=== PATIENT | male | born 1970 | race African-American/Black ===

== ENCOUNTER 2017-08-21 13:39 | Inpatient (IN) | payer OTHER ==
[2017-08-21 18:02] VITALS: BMI 23.6
--- NOTE | 2017-08-21 18:18 | HP ---
CIWA Score - CIWA Score Nausea/Vomitin-Mild Nausea/No Vomiting Muscle Tremors: 4-Moderate,w/Arms Extend Anxiety: 4-Mod. Anxious/Guarded Agitation: 4-Moderately Restless Paroxysmal Sweats: 1-Minimal Palms Moist Orientation: 0-Oriented Tacttile Disturbances: 0-None Auditory Disturbances: 0-None Visual Disturbances: 0-None Headache: 0-None Present CIWA-Ar Total Score: 14 Admission ROS [facility]HS - HPI Chief Complaint: WITHDRAWAL SX Allergies/Adverse Reactions: Allergies Allergy/AdvReac Type Severity Reaction Status Date / Time No Known Allergies Allergy Verified 08/25/14 16:23 History of Present Illness: 47 YEARS OLD MALE WITH LONG HISTORY OF ALCOHOL COCAINE NICOTINE DEPENDENCE DENIES MEDICAL ISSUE HAS DEPRESSION IS ADMITTED TO DETOX Exam Limitations: No Limitations - Ebola screening Have you traveled outside of the country in the last 21 days: No Have you had contact with anyone from an Ebola affected area: No Have you been sick,other than usual withdrawal symptoms: No Do you have a fever: No - Review of Systems Constitutional: Loss of Appetite, Changes in sleep, Unintentional Wgt. Loss, Unexplained wgt Loss EENT: reports: No Symptoms Reported Respiratory: reports: No Symptoms reported Cardiac: reports: No Symptoms Reported GI: reports: Nausea, Poor Appetite, Poor Fluid Intake, Abdominal cramping : reports: No Symptoms Reported Musculoskeletal: reports: No Symptoms Reported Integumentary: reports: No Symptoms Reported Endocrine: reports: No Symptoms Reported Hematology: reports: No Symptoms Reported Psychiatric: reports: Judgement Intact, Orientated x3, Depressed Other Systems: Reviewed and Negative Patient History - Patient Medical History Hx Anemia: No Hx Asthma: No Hx Chronic Obstructive Pulmonary Disease (COPD): No Hx Cancer: No Hx Cardiac Disorders: No Hx Congestive Heart Failure: No Hx Hypertension: No Hx Hypercholesterolemia: No Hx Pacemaker: No HX Cerebrovascular Accident: No Hx Seizures: No Hx Dementia: No Hx Diabetes: No Hx Gastrointestinal Disorders: Yes (ulcerative colitis not taking any meds at present) Hx Liver Disease: No Hx Genitourinary Disorders: No Hx Sexually Transmitted Disorders: No Hx Renal Disease (ESRD): No Hx Thyroid Disease: No Hx Human Immunodeficiency Virus (HIV): No Hx Hepatitis C: No Hx Depression: Yes Hx Suicide Attempt: No Hx Bipolar Disorder: No Hx Schizophrenia: No - Patient Surgical History Past Surgical History: No Hx Neurologic Surgery: No Hx Cataract Extraction: No Hx Cardiac Surgery: No Hx Lung Surgery: No Hx Breast Surgery: No Hx Breast Biopsy: No Hx Abdominal Surgery: No Hx Appendectomy: No Hx Cholecystectomy: No Hx Genitourinary Surgery: No Hx Orthopedic Surgery: No - PPD History Previous Implant?: Yes Documented Results: Negative w/proof Implanted On Prior [facility] Admission?: Yes Date: 08/27/14 PPD to be Administered?: Yes - Smoking Cessation Smoking history: Current every day smoker Have you smoked in the past 12 months: Yes Aproximately how many cigarettes per day: 5 Cigars Per Day: 0 Hx Chewing Tobacco Use: No Initiated information on smoking cessation: Yes 'Breaking Loose' booklet given: 08/21/17 - Substance & Tx. History Hx Alcohol Use: Yes Hx Substance Use: Yes Substance Use Type: Alcohol, Cocaine Hx Substance Use Treatment: Yes (2015 [facility]) - Substances Abused Alcohol Route: Oral Frequency: Daily Amount used: 2 PINT VOLKA Age of first use: 18 Date of Last Use: 08/20/17 Family Disease History - Family Disease History Family Disease History: Heart Disease: Mother (), Other: Mother Admission Physical Exam S - Vital Signs Vital Signs: Vital Signs - 24 hr 08/21/17 18:01 Temperature 98.3 F Pulse Rate 60 Respiratory 18 Rate Blood Pressure 110/77 - Physical General Appearance: Yes: Appropriately Dressed, Mild Distress, Thin, Tremorous, Irritable, Sweating, Anxious HEENTM: Yes: Hearing grossly Normal, Normal ENT Inspection, Normocephalic, Normal Voice Respiratory: Yes: Chest Non-Tender, Lungs Clear, Normal Breath Sounds, No Respiratory Distress, No Accessory Muscle Use Neck: Yes: Supple, Trachea in good position Breast: Yes: Breasts Symetrical Cardiology: Yes: Regular Rhythm, Regular Rate, S1, S2 Abdominal: Yes: Normal Bowel Sounds, Non Tender, Soft Genitourinary: Yes: Within Normal Limits Back: Yes: Normal Inspection Musculoskeletal: Yes: full range of Motion, Gait Steady Extremities: Yes: Normal Inspection, Normal Range of Motion, Non-Tender, Tremors Neurological: Yes: Fully Oriented, Alert, Motor Strength 5/5, Normal Response, Depressed Affect Integumentary: Yes: Warm Lymphatic: Yes: Within Normal Limits - Diagnostic (1) Alcohol dependence with uncomplicated withdrawal Current Visit: Yes Status: Acute (2) Cocaine dependence, uncomplicated Current Visit: Yes Status: Chronic (3) GERD (gastroesophageal reflux disease) Current Visit: Yes Status: Chronic Qualifiers: Esophagitis presence: without esophagitis Qualified Code(s): K21.9 - Gastro-esophageal reflux disease without esophagitis; K21.9 - Gastro- esophageal reflux disease without esophagitis; K21.9 - Gastro-esophageal reflux disease without esophagitis (4) Weight loss Current Visit: Yes Status: Acute (5) Depression (emotion) Current Visit: Yes Status: Suspected Qualifiers: Depression Type: dysthymia Qualified Code(s): F34.1 - Dysthymic disorder; F34.1 - Dysthymic disorder; F34.1 - Dysthymic disorder (6) Nicotine dependence Current Visit: Yes Status: Acute Qualifiers: Nicotine product type: cigarettes Substance use status: in withdrawal Qualified Code(s): F17.213 - Nicotine dependence, cigarettes, with withdrawal; F17.213 - Nicotine dependence, cigarettes, with withdrawal Cleared for Admission S - Detox or Rehab [facility] Level of Care: Medically Managed Detox Regimen/Protocol: Librium [facility] Breath Alcohol Content Breath Alcohol Content: 0 Urine Drug Screen - Results Drug Screen Negative: No Urine Drug Screen Results: OPI-Opiates
[2017-08-21] MEDS ORDERED: MAGNESIUM CITRATE 300 ML BOTTLE PO PRN (18:25)
[2017-08-21] MEDS ORDERED: diphenhydrAMINE HCL 50 MG CAPSULE PO PRN (18:25)
[2017-08-21] MEDS ORDERED: LOPERAMIDE HCL 2 MG CAPSULE PO PRN (18:25)
[2017-08-21] MEDS ORDERED: ACETAMINOPHEN 325 MG TABLET (FP) PO PRN (18:25)
[2017-08-21] MEDS ORDERED: guaiFENesin/D-METHORPHAN HB 10 ML UNIT-DOSE CUPS PO PRN (18:25)
[2017-08-21] MEDS ORDERED: MAGNESIUM HYDROX 2400MG/30ML ORAL SUSPENSION 30 ML CUP PO PRN (18:25)
[2017-08-21] MEDS ORDERED: NICOTINE POLACRILEX 2 MG GUM BC PRN (18:25)
[2017-08-21] MEDS ORDERED: chlordiazePOXIDE HCL 25 MG CAPSULE PO PRN (18:25)
[2017-08-21] MEDS ORDERED: MAG HYDROX/AL HYDROX/SIMETH 30 ML UNIT-DOSE CUP PO PRN (18:25)
[2017-08-21] MEDS ORDERED: MENTHOL/PHENOL 1 EACH UD MM PRN (18:25)
[2017-08-21] MEDS ORDERED: P-EPHED 60MG/TRIPROLIDI 2.5MG TABLET PO PRN (18:25)
[2017-08-21] MEDS: chlordiazePOXIDE HCL 25 MG CAPSULE PO SCH (22:39)
[2017-08-21] MEDS: RANITIDINE HCL 150 MG TABLET (FP) PO SCH (22:39)
[2017-08-21] MEDS: THIAMINE HCL 100 MG TABLET (FP) PO SCH (22:41)
[2017-08-22 01:57] LABS: URINE APPEARANCE CLOUDY; URINE BILIRUBIN NEGATIVE (NEGATIVE); URINE BLOOD NEGATIVE (NEGATIVE); URINE COLOR YELLOW; URINE GLUCOSE (UA) NEGATIVE (NEGATIVE); URINE KETONE NEGATIVE (NEGATIVE); URINE NITRITE NEGATIVE (NEGATIVE); URINE PROTEIN NEGATIVE (NEGATIVE); URINE UROBILINOGEN NEGATIVE mg/dL (0.2-1.0)
[2017-08-22] MEDS: chlordiazePOXIDE HCL 25 MG CAPSULE PO SCH ×4 (06:44→22:41)
--- NOTE | 2017-08-22 09:26 | EKG ---
Test Reason : Blood Pressure : / mmHG Vent. Rate : 055 BPM Atrial Rate : 055 BPM P-R Int : 168 ms QRS Dur : 094 ms QT Int : 402 ms P-R-T Axes : 056 075 063 degrees QTc Int : 384 ms SINUS BRADYCARDIA OTHERWISE NORMAL ECG NO PREVIOUS ECGS AVAILABLE Confirmed by DERICK TREJO MD ([id number]) on 08/22/2017 9:25:49 AM Referred By: STEVE GARCIA Confirmed By:DERICK TREJO MD
[2017-08-22 09:44] LABS: MCH 29.4 pg (25.7-33.7); MCHC 32.6 g/dl (32.0-35.9); MEAN CELL VOLUME 90.2 fl (80-96); MEAN PLT VOLUME 9.1 fl (7.5-11.1); PLATELET COUNT 186 K/MM3 (134-434); RDW 14.2 % (11.9-15.9); WHITE BLOOD COUNT 5.9 K/mm3 (4.0-10.0)
[2017-08-22 09:57] LABS: ALBUMIN 3.4 g/dl (3.4-5.0); CALCIUM 9.3 mg/dL (8.5-10.1); GLUCOSE,RANDOM 114 mg/dL (74-106); SGOT/AST 15 U/L (15-37)
[2017-08-22 09:59] LABS: ALK PHOS 98 U/L (45-117); ANION GAP 3 (8-16); BILIRUBIN,TOTAL 0.7 mg/dL (0.2-1.0); CO2 32 mmol/L (21-32); CREATININE 1.2 mg/dL (0.7-1.3); SGPT/ALT 21 U/L (12-78); TOT PROT 6.6 g/dl (6.4-8.2)
[2017-08-22 10:06] LABS: URINE LEUK ESTERASE Negative (NEGATIVE)
[2017-08-22] MEDS: RANITIDINE HCL 150 MG TABLET (FP) PO SCH ×2 (11:15→22:41)
[2017-08-22] MEDS: PRENATAL VITAMINS W/ FOLIC ACID TABLET (FP) PO SCH (11:15)
[2017-08-22] MEDS: NICOTINE 14 MG/24 HOURS TOPICAL PATCH TD SCH (11:15)
--- NOTE | 2017-08-22 14:31 | PN ---
[facility] CIWA - CIWA Score Nausea/Vomitin-No Nausea/No Vomiting Muscle Tremors: 4-Moderate,w/Arms Extend Anxiety: 4-Mod. Anxious/Guarded Agitation: 3 Paroxysmal Sweats: 2 Orientation: 0-Oriented Tacttile Disturbances: 1-Very Mild Itch/Numbness Auditory Disturbances: 0-None Visual Disturbances: 0-None Headache: 0-None Present CIWA-Ar Total Score: 14 BHS Progress Note (SOAP) Subjective: Interrupted sleep, agitation, nausea, body aches, chills Objective: 08/22/17 14:28 Vital Signs Temperature 97.7 F 08/22/17 13:04 Pulse Rate 86 08/22/17 13:04 Respiratory Rate 18 08/22/17 13:04 Blood Pressure 112/71 08/22/17 13:04 O2 Sat by Pulse Oximetry (%) Laboratory Last Values WBC 5.9 K/mm3 (4.0-10.0) 08/22/17 07:00 RBC 4.85 M/mm3 (4.00-5.60) 08/22/17 07:00 Hgb 14.3 GM/dL (11.7-16.9) 08/22/17 07:00 Hct 43.7 % (35.4-49) 08/22/17 07:00 MCV 90.2 fl (80-96) 08/22/17 07:00 MCH 29.4 pg (25.7-33.7) 08/22/17 07:00 MCHC 32.6 g/dl (32.0-35.9) 08/22/17 07:00 RDW 14.2 % (11.9-15.9) 08/22/17 07:00 Plt Count 186 K/MM3 (134-434) 08/22/17 07:00 MPV 9.1 fl (7.5-11.1) D 08/22/17 07:00 Sodium 142 mmol/L (136-145) 08/22/17 07:00 Potassium 4.9 mmol/L (3.5-5.1) 08/22/17 07:00 Chloride 107 mmol/L (98-107) 08/22/17 07:00 Carbon Dioxide 32 mmol/L (21-32) 08/22/17 07:00 Anion Gap 3 (8-16) L 08/22/17 07:00 BUN 13 mg/dL (7-18) 08/22/17 07:00 Creatinine 1.2 mg/dL (0.7-1.3) 08/22/17 07:00 Creat Clearance w eGFR > 60 (>60) 08/22/17 07:00 Random Glucose 114 mg/dL (74-106) H D 08/22/17 07:00 Calcium 9.3 mg/dL (8.5-10.1) 08/22/17 07:00 Total Bilirubin 0.7 mg/dL (0.2-1.0) D 08/22/17 07:00 AST 15 U/L (15-37) D 08/22/17 07:00 ALT 21 U/L (12-78) D 08/22/17 07:00 Alkaline Phosphatase 98 U/L (45-117) 08/22/17 07:00 Total Protein 6.6 g/dl (6.4-8.2) 08/22/17 07:00 Albumin 3.4 g/dl (3.4-5.0) 08/22/17 07:00 Urine Color Yellow 08/21/17 21:43 Urine Appearance Cloudy 08/21/17 21:43 Urine pH 7.0 (5.0-8.0) D 08/21/17 21:43 Ur Specific [place] 1.020 (1.005-1.025) 08/21/17 21:43 Urine Protein Negative (NEGATIVE) 08/21/17 21:43 Urine Glucose (UA) Negative (NEGATIVE) 08/21/17 21:43 Urine Ketones Negative (NEGATIVE) 08/21/17 21:43 Urine Blood Negative (NEGATIVE) 08/21/17 21:43 Urine Nitrite Negative (NEGATIVE) 08/21/17 21:43 Urine Bilirubin Negative (NEGATIVE) 08/21/17 21:43 Urine Urobilinogen Negative mg/dL (0.2-1.0) 08/21/17 21:43 Ur Leukocyte Esterase Negative (NEGATIVE) 08/21/17 21:43 RPR Titer Reactive 1:2 (NONREACTIVE) H 08/22/17 07:00 T.pallidum Ab (MHA) Previously reactive (NONREACTIVE) 08/22/17 07:00 Labs noted 08/22/17 14:31 Assessment: Withdrawal sx Plan: Alert, oriented x 3, NAD, Continue detox
--- NOTE | 2017-08-22 16:31 | CONSULT ---
[facility] Psychiatric Consult - Data Date of interview: 08/22/17 Admission source: [facility] Identifying data: Readmission to [facility] for this 47 y/o AA male seeking detox treatment on for alcohol and cocaine dependence.Patient is single, father of one,homeless and supported on odd jobs. Substance Abuse History: Discussed in this interview.Substance abuse is confirmed by patient. Smoking Cessation. Smoking history: Current every day smoker. Have you smoked in the past 12 months: Yes. Aproximately how many cigarettes per day: 5. Cigars Per Day: 0. Hx Chewing Tobacco Use: No. Initiated information on smoking cessation: Yes. 'Breaking Loose' booklet given : 08/21/17. - Substance & Tx. History. Hx Alcohol Use: Yes. Hx Substance Use : Yes. Substance Use Type: Alcohol, Cocaine. Hx Substance Use Treatment: Yes ( 2015 I). - Substances Abused. Alcohol. Route: Oral. Frequency: Daily. Amount used: 2 P[place] VOLKA. Age of first use: 18. Date of Last Use: 08/20/17 Medical History: GERD and a history of ulcerative colitis. Psychiatric History: Patient denies. Physical/Sexual Abuse/Trauma History: Denies. Additional Comment: Urine Drug Screen Results: OPI-Opiates.Noted. Mental Status Exam - Mental Status Exam Alert and Oriented to: Time, Place, Person Cognitive Function: Good Patient Appearance: Well Groomed Mood: Withdrawn, Hopeful Affect: Mood Congruent Patient Behavior: Fatigued, Cooperative Speech Pattern: Clear Voice Loudness: Normal Thought Process: Intact, Goal Oriented Thought Disorder: Not Present Hallucinations: Denies Suicidal Ideation: Denies Homicidal Ideation: Denies Insight/Judgement: Poor Sleep: Well Appetite: Good Muscle strength/Tone: Normal Gait/Station: Normal Psychiatric Findings - Problem List ([place] 1, 2,3) (1) Alcohol dependence with uncomplicated withdrawal Current Visit: Yes Status: Acute (2) Cocaine dependence, uncomplicated Current Visit: Yes Status: Acute (3) Nicotine dependence Current Visit: Yes Status: Acute Qualifiers: Nicotine product type: cigarettes Substance use status: in withdrawal Qualified Code(s): F17.213 - Nicotine dependence, cigarettes, with withdrawal; F17.213 - Nicotine dependence, cigarettes, with withdrawal (4) Weight loss Current Visit: Yes Status: Acute (5) GERD (gastroesophageal reflux disease) Current Visit: Yes Status: Chronic Qualifiers: Esophagitis presence: without esophagitis Qualified Code(s): K21.9 - Gastro-esophageal reflux disease without esophagitis; K21.9 - Gastro- esophageal reflux disease without esophagitis; K21.9 - Gastro-esophageal reflux disease without esophagitis (6) Ulcerative colitis Current Visit: No Status: Chronic - Initial Treatment Plan Initial Treatment Plan: Psychoeducation.Detoxification.Observation.
[2017-08-22] MEDS: THIAMINE HCL 100 MG TABLET (FP) PO SCH (22:41)
[2017-08-23] MEDS: chlordiazePOXIDE HCL 25 MG CAPSULE PO SCH ×2 (06:30→10:31)
[2017-08-23 06:36] VITALS: TEMP 98.1
[2017-08-23] MEDS: NICOTINE 14 MG/24 HOURS TOPICAL PATCH TD SCH (10:30)
[2017-08-23] MEDS: PRENATAL VITAMINS W/ FOLIC ACID TABLET (FP) PO SCH (10:30)
[2017-08-23] MEDS: RANITIDINE HCL 150 MG TABLET (FP) PO SCH (10:30)
[2017-08-23 13:45] VITALS: BP 112/73; PULSE 71
--- NOTE | 2017-08-23 14:29 | PN ---
S CIWA - CIWA Score Nausea/Vomitin Muscle Tremors: 3 Anxiety: 2 Agitation: 2 Paroxysmal Sweats: 1-Minimal Palms Moist Orientation: 0-Oriented Tacttile Disturbances: 1-Very Mild Itch/Numbness Auditory Disturbances: 1-Very Mild Visual Disturbances: 0-None Headache: 2-Mild CIWA-Ar Total Score: 15 S Progress Note (SOAP) Subjective: alert,irritable,anxious,interrupted sleep, Objective: 08/23/17 14:28 Vital Signs Temperature 98.1 F 08/23/17 13:45 Pulse Rate 71 08/23/17 13:45 Respiratory Rate 18 08/23/17 13:45 Blood Pressure 112/73 08/23/17 13:45 O2 Sat by Pulse Oximetry (%) Laboratory Last Values WBC 5.9 K/mm3 (4.0-10.0) 08/22/17 07:00 RBC 4.85 M/mm3 (4.00-5.60) 08/22/17 07:00 Hgb 14.3 GM/dL (11.7-16.9) 08/22/17 07:00 Hct 43.7 % (35.4-49) 08/22/17 07:00 MCV 90.2 fl (80-96) 08/22/17 07:00 MCH 29.4 pg (25.7-33.7) 08/22/17 07:00 MCHC 32.6 g/dl (32.0-35.9) 08/22/17 07:00 RDW 14.2 % (11.9-15.9) 08/22/17 07:00 Plt Count 186 K/MM3 (134-434) 08/22/17 07:00 MPV 9.1 fl (7.5-11.1) D 08/22/17 07:00 Sodium 142 mmol/L (136-145) 08/22/17 07:00 Potassium 4.9 mmol/L (3.5-5.1) 08/22/17 07:00 Chloride 107 mmol/L (98-107) 08/22/17 07:00 Carbon Dioxide 32 mmol/L (21-32) 08/22/17 07:00 Anion Gap 3 (8-16) L 08/22/17 07:00 BUN 13 mg/dL (7-18) 08/22/17 07:00 Creatinine 1.2 mg/dL (0.7-1.3) 08/22/17 07:00 Creat Clearance w eGFR > 60 (>60) 08/22/17 07:00 Random Glucose 114 mg/dL (74-106) H D 08/22/17 07:00 Calcium 9.3 mg/dL (8.5-10.1) 08/22/17 07:00 Total Bilirubin 0.7 mg/dL (0.2-1.0) D 08/22/17 07:00 AST 15 U/L (15-37) D 08/22/17 07:00 ALT 21 U/L (12-78) D 08/22/17 07:00 Alkaline Phosphatase 98 U/L (45-117) 08/22/17 07:00 Total Protein 6.6 g/dl (6.4-8.2) 08/22/17 07:00 Albumin 3.4 g/dl (3.4-5.0) 08/22/17 07:00 Urine Color Yellow 08/21/17 21:43 Urine Appearance Cloudy 08/21/17 21:43 Urine pH 7.0 (5.0-8.0) D 08/21/17 21:43 Ur Specific [place] 1.020 (1.005-1.025) 08/21/17 21:43 Urine Protein Negative (NEGATIVE) 08/21/17 21:43 Urine Glucose (UA) Negative (NEGATIVE) 08/21/17 21:43 Urine Ketones Negative (NEGATIVE) 08/21/17 21:43 Urine Blood Negative (NEGATIVE) 08/21/17 21:43 Urine Nitrite Negative (NEGATIVE) 08/21/17 21:43 Urine Bilirubin Negative (NEGATIVE) 08/21/17 21:43 Urine Urobilinogen Negative mg/dL (0.2-1.0) 08/21/17 21:43 Ur Leukocyte Esterase Negative (NEGATIVE) 08/21/17 21:43 RPR Titer Reactive 1:2 (NONREACTIVE) H 08/22/17 07:00 T.pallidum Ab (MHA) Previously reactive (NONREACTIVE) 08/22/17 07:00 Hepatitis C Antibody 0.1 s/co ratio (0.0-0.9) 08/21/17 07:00 08/23/17 14:30 previously treated for syphilis before Assessment: 08/23/17 14:31 withdrawal symptom Plan: continue detox
--- NOTE | 2017-08-23 14:33 | PN ---
[facility] Progress Note Note: addendum non compliance with medication
--- NOTE | 2017-08-23 16:17 | PN ---
S Progress Note Note: patient did not want to complete treatment,signed release ama,seen by counselor
--- NOTE | 2017-08-23 16:20 | DS ---
[facility] Detox Discharge Summary Admission Date: 08/21/17 Discharge Date: 08/23/17 - History Present History: Alcohol Dependence, Cocaine Dependence Additional Comments: patient did not want to complete treatment,signed release ama Pertinent Past History: gerd - Physical Exam Results Vital Signs: Vital Signs Temperature 98.1 F 08/23/17 13:45 Pulse Rate 71 08/23/17 13:45 Respiratory Rate 18 08/23/17 13:45 Blood Pressure 112/73 08/23/17 13:45 O2 Sat by Pulse Oximetry (%) Pertinent Admission Physical Exam Findings: withdrawal symptom - Medication Discharge Medications: Ambulatory Orders NK [No Known Home Medication] 08/25/14 - AMA Did Patient Leave Against Medical Advice: Yes
[2017-08-23] MEDS ORDERED: chlordiazePOXIDE 5 MG CAPSULE PO SCH (23:00)
[2017-08-24] MEDS ORDERED: chlordiazePOXIDE HCL 10 MG CAPSULE PO SCH (23:00)
== END 2017-08-23 16:40 | disposition left against medical advice (07) | DRG 770 ==
LOC: YASAS 13:39 → Y6N 19:29
PROVIDERS: ADMIT Internal Medicine; ATTEND Internal Medicine
PROC: HZ2ZZZZ Detoxification Services for Substance Abuse Treatment (ICD-10-PCS; principal; 2017-08-21)
DX: F10.230 Alcohol dependence with withdrawal, uncomplicated (principal); F14.20 Cocaine dependence, uncomplicated; F17.213 Nicotine dependence, cigarettes, with withdrawal; F34.1 Dysthymic disorder; K21.9 Gastro-esophageal reflux disease without esophagitis; K51.90 Ulcerative colitis, unspecified, without complications; Z87.898 Personal history of other specified conditions
CPT/HCPCS: 36415; 80053; 81003; 85027; 86593; 86780; 86803; 93005; 93010